=== PATIENT | female | born 1985 | race Caucasian/White ===

== ENCOUNTER 2017-04-17 19:43 | Emergency (ER) | payer OTHER ==
[2017-04-17 19:50] VITALS: BP 133/87; PULSE 93; TEMP 99.1; BMI 27.1
--- NOTE | 2017-04-17 19:50 | PDOC ---
Rapid Medical Evaluation Time Seen by Provider: 04/17/17 19:48 Medical Evaluation: 04/17/17 19:48 I have performed a brief in-person evaluation of the patient. The patient presents with chief complaint of: irritation of both eyes after sleeping with contact lens in both eyes. States able to remove contact lens but presents with irritation of both eyes and photophobia Pertinent physical exam findings are: NAD HEENT: + ejection of sclera + swelling of upper and lower lids + tearing unlabored breathing Heart s1s2 I have ordered the following: urine The patient will proceed to the ED for further evaluation.
[2017-04-17] MEDS ORDERED: TETRACAINE 0.5% HCL 0.6ML DROPPER.BOTTLE OU ONE (20:14)
[2017-04-17] MEDS ORDERED: ERYTHROMYCIN 0.5% OPHTHALMIC OINTMENT 3.5 GM TUBE OU ONE (20:14)
--- NOTE | 2017-04-17 20:14 | PDOC ---
History of Present Illness - General Chief Complaint: Eye Problem Stated Complaint: Eye Problem Time Seen by Provider: 04/17/17 19:48 History Source: Patient - History of Present Illness Initial Comments: 04/17/17 20:13 Best Contact:[phone] Pmhx:N/a Pshx:N/A Allergies:NKDA 31-year-old female presents to the emergency department complaining of bilateral blurry vision and pain 2 days. Patient states she forgot to remove her soft contact lenses 2 evenings ago and wore it throughout the evening into the morning. When she awoke, she felt a burning sensation to both eyes. Patient denies any other symptoms. Unknown last tetanus. Past History - Past Medical History Allergies/Adverse Reactions: Allergies Allergy/AdvReac Type Severity Reaction Status Date / Time No Known Allergies Allergy Verified 04/17/17 19:48 Home Medications: Ambulatory Orders Erythromycin 0.5% Eye Ointment [Erythromycin 0.5% Eye Ointment -] 1 applic OU BID #2 tube 04/17/17 COPD: No - Suicide/Smoking/Psychosocial Hx Smoking History: Current every day smoker Number of Cigarettes Smoked Daily: 2 Information on smoking cessation initiated: No Review of Systems - Review of Systems Able to Perform ROS?: Yes Comments:: 04/17/17 20:37 CONSTITUTIONAL: Absent: fever, chills, diaphoresis, generalized weakness, malaise, loss of appetite HEENT: Absent: rhinorrhea, nasal congestion, throat pain, throat swelling, difficulty swallowing, mouth swelling, ear pain, eye pain, visual Changes +++B/L eye irritation/pain/blurry vision Visual acuity Right 20/20 Left 20/20 -2 B/L 20/10 Tetracine 2 gtts per eye Fluorescein stain Is the patient limited German proficient: No *Physical Exam - Vital Signs Last Vital Signs Temp Pulse Resp BP Pulse Ox 99.1 F 93 H 18 133/87 100 04/17/17 19:48 04/17/17 19:48 04/17/17 19:48 04/17/17 19:48 04/17/17 19:48 - Physical Exam Comments: 04/17/17 20:38 GENERAL: Well developed, well nourished. Awake and alert. No acute distress. HEENT: Normocephalic, atraumatic. PERRLA, EOMI. No conjunctival pallor. Sclera are non- icteric. Moist mucous membranes. Oropharynx is clear. ++ Dye uptake to bilateral corneas Bilateral sclerae/injected Upper eyelid slightly swollen bilaterally Procedure: Tetracaine 2 drops for eye Fluorescein stain Cornea examined under blue light shows bilateral 70% dye uptake to both eyes Both upper and lower eyelids everted: No foreign body Erythromycin ophthalmic ointment applied *DC/Admit/Observation/Transfer Diagnosis at time of Disposition: Corneal abrasion due to contact lens Qualifiers: Laterality: bilateral Qualified Code(s): H18.823 - Corneal disorder due to contact lens, bilateral - Discharge Dispostion Disposition: HOME Condition at time of disposition: Stable Admit: No - Prescriptions Prescriptions: Erythromycin 0.5% Eye Ointment [Erythromycin 0.5% Eye Ointment -] 1 applic OU BID #2 tube - Referrals Referrals: ON STAFF,NOT [Primary Care Provider] - Liilana Roger MD [Staff Physician] - - Patient Instructions Printed Discharge Instructions: DI for Corneal Abrasion Additional Instructions: Avoid wearing contact lenses for the next 2 weeks or until cleared by the yeast cake cutter It is important you've follow with yeast cake cutter within 48 hours We've updated her tetanus today while in the emergency department Apply the erythromycin ophthalmic ointment as prescribed Return back to the emergency department for severe/persistent or worsening symptoms - Post Discharge Activity
[2017-04-17] MEDS ORDERED: ERYTHROMYCIN 0.5% OPHTHALMIC OINTMENT 3.5 GM TUBE ONE (20:17)
[2017-04-17] MEDS ORDERED: TETRACAINE 0.5% OPHTH SOLN 2 ML BOTTLE ONE (20:17)
[2017-04-17] MEDS ORDERED: TETANUS AND DIPHTHERIA TOXOID 0.5 ML DISP.SYRIN IM ONE (20:27)
== END 2017-04-17 20:50 | disposition home or self-care (01) ==
LOC: JERFT 19:43
PROC: 3E0234Z Introduction of Serum, Toxoid and Vaccine into Muscle, Percutaneous Approach (ICD-10-PCS; principal; 2017-04-17)
DX: H18.823 Corneal disorder due to contact lens, bilateral (principal)
CPT/HCPCS: 84703; 90471; 99281-25

== ENCOUNTER 2018-10-19 19:37 | Emergency (ER) | payer OTHER ==
[2018-10-19 19:43] VITALS: TEMP 98.6; BMI 23.5
--- NOTE | 2018-10-19 20:00 | PDOC ---
Attending Attestation - Resident Resident Name: Shahana Velez - HPI HPI: 10/19/18 22:25 Pt presents to the ED complaining of shortness of breath that has been persistent for weeks but became acutely worse three days ago. History of hyperthyroidism with non compliance with medications. Restarted her PTU three days ago. - Physicial Exam PE: 10/19/18 22:35 agree with resident exam. Patient is alert and oriented and in no acute distress. Lungs are clear with good air entry b/l, speaking in complete sentences. Heart regular rate and rhythm. Abdomen soft, non tender non distended. - Medical Decision Making 10/19/18 22:39 Pt presents to the ED complaining of palpitations and shortness of breath. EKG shows normal sinus rhythm. PERC negative. Labs show no evidence of anemia. Will discharge home with instructions to return to the ED for worsening symptoms.
--- NOTE | 2018-10-19 20:02 | PDOC ---
History of Present Illness - General Chief Complaint: Shortness of Breath Stated Complaint: PALPITATIONS/SHORTNESS OF BREATH Time Seen by Provider: 10/19/18 19:58 - History of Present Illness Initial Comments: 10/19/18 20:55 HPI: 33 y/o F with hx of hyperthyroid presenting with 3 days of palpitations and SOB after restarting her PTU 3 days ago after self discontinuing them for the past 2 months. She states she got sick of taking her pills and they tasted bad. The palpitations are constant through the day and night, however, they seem to be improved today. She denies any chest pain. She also reports SOB which worsened today which prompted arrival to the ED; its present at rest and worse with exertion. She also reports intermittent LH, blurry vision, diaphoresis. She denies fever, chills, n/v, diarrhea, chest pain, DAS, brittle hair/nails. She reports Dr Alexander Corbin is not aware she stopped her PTU and hasnt had thyroid function tests in ~7months. PMHx: as noted above ROS: as noted SHx: 2cigs/day; occasional alcohol use however admits heavy wine use in the past week; no rec drugs Allergies: NKDA ROS: GENERAL/CONSTITUTIONAL: No fever or chills. No weakness. HEAD, EYES, EARS, NOSE AND THROAT: No change in vision. No ear pain or discharge. No sore throat. CARDIOVASCULAR: No chest pain RESPIRATORY: No cough, wheezing, or hemoptysis. GASTROINTESTINAL: No nausea, vomiting, diarrhea or constipation. GENITOURINARY: No dysuria, frequency, or change in urination. MUSCULOSKELETAL: +joint pain. No neck or back pain. SKIN: No rash NEUROLOGIC: No headache, vertigo, loss of consciousness, or change in strength/ sensation. ENDOCRINE: No increased thirst. No abnormal weight change HEMATOLOGIC/LYMPHATIC: No anemia, easy bleeding, or history of blood clots. ALLERGIC/IMMUNOLOGIC: No hives or skin allergy. PE: GENERAL: Awake, alert, and fully oriented, no acute distress HEAD: No signs of trauma, normocephalic, atraumatic EYES: EOMI, sclera anicteric, conjunctiva clear, BL exophthalmos ENT: Auricles normal inspection, hearing grossly normal, nares patent, oropharynx clear without exudates. Moist mucosa NECK: Normal ROM, no lymphadenopathy, no goiter present or large thyroid palpated, no nodes appreciated LUNGS: No increased work of breathing, symmetrical chest rise, clear to auscultation bilaterally, no wheezes, crackles or rhonchi HEART: Regular rate and rhythm, normal S1 and S2, no murmurs, peripheral pulses 2+ and equal bilaterally. ABDOMEN: Soft, nondistended, nontender, normoactive bowel sounds. No guarding, no rebound. No masses EXTREMITIES: Normal inspection, Normal range of motion, no edema. No clubbing or cyanosis or ecchymosis NEUROLOGICAL: Cranial nerves II through XII grossly intact. Normal speech, normal gait, no focal sensorimotor deficits SKIN: Warm, Dry, normal turgor, no rashes or lesions noted Past History - Past Medical History Allergies/Adverse Reactions: Allergies Allergy/AdvReac Type Severity Reaction Status Date / Time No Known Allergies Allergy Verified 10/19/18 19:41 Home Medications: Ambulatory Orders Propylthiouracil 50 mg PO ASDIR 10/19/18 COPD: No Thyroid Disease: Yes - Suicide/Smoking/Psychosocial Hx Smoking History: Current some day smoker Number of Cigarettes Smoked Daily: 2 Information on smoking cessation initiated: No Hx Alcohol Use: Yes (occasional) *Physical Exam - Vital Signs Last Vital Signs Temp Pulse Resp BP Pulse Ox 98.6 F 88 18 130/95 99 10/19/18 19:41 10/19/18 19:41 10/19/18 19:41 10/19/18 19:41 10/19/18 19:41 ED Treatment Course - LABORATORY CBC & Chemistry Diagram: 10/19/18 21:11 10/19/18 21:11 Medical Decision Making - Medical Decision Making 10/19/18 21:42 33 y/o F with hx of hyperthyroid presenting with 3 days of palpitations and SOB after restarting her PTU 3 days ago after self discontinuing them for the past 2 months. Vitals wnl. PE only significant for BL exophthalmos. Patient afebrile , hemodynamically stable, and nonaltered making thyroid storm highly unlikely. ACS unlikely given negative history and age. PERC negative making PE unlikely. -cbc, cmp, UA, upreg -ekg 10/19/18 21:46 EKG: NSR with absent RICKY, STD. Nml interval duration and axis. Nml R wave progression. Absent Q waves. 10/19/18 22:07 labs unremarkable 10/19/18 22:36 discussed with patient results and explained importance of following up with PCP for better control of hyperthyroidism; she understands instructions and is comfortable with DC home 10/19/18 23:24 Patient was informed to get dressed meanwhile DC papers were being printed, however, patient was nowhere to be found *DC/Admit/Observation/Transfer Diagnosis at time of Disposition: Palpitations, Shortness of breath - Discharge Dispostion Disposition: ELOPED Condition at time of disposition: Improved Decision to Admit order: No - Referrals Referrals: Alexander Corbin [Primary Care Provider] - - Patient Instructions Printed Discharge Instructions: DI for Shortness of Breath, DI for Palpitations Additional Instructions: Additional Instructions: Please return to the emergency department with any new or worsening symptoms or concerns including severe shortness of breath, excessive vomiting, fever, fainting. Please follow up with your primary care physician within 24-48 hours for further evaluation and management of hyperthyroidism - Post Discharge Activity
[2018-10-19 20:20] VITALS: BP 127/95; PULSE 85
[2018-10-19 21:31] LABS: BASO % 0.6 % (0-2.0); EOS % 2.1 % (0-4.5); HEMATOCRIT 40.2 % (32.4-45.2); HEMOGLOBIN 13.3 GM/dL (10.7-15.3); LYMPH % 21.3 % (8-40); MCHC 33.1 g/dl (32.0-36.0); MEAN CELL VOLUME 93.8 fl (80-96); MEAN PLT VOLUME 7.9 fl (7.5-11.1); MONO % 13.1 % (3.8-10.2); NEUT % 62.9 % (42.8-82.8); PLATELET COUNT 226 K/MM3 (134-434); RBC 4.28 M/mm3 (3.60-5.2); RDW 13.5 % (11.6-15.6); WHITE BLOOD COUNT 5.5 K/mm3 (4.0-10.0)
[2018-10-19 21:55] LABS: BILIRUBIN,TOTAL 0.5 mg/dL (0.2-1); BLOOD UREA NITROGEN 11.5 mg/dL (7-18); CALCIUM 9.1 mg/dL (8.5-10.1); CREATININE 0.6 mg/dL (0.55-1.3); POTASSIUM 3.6 mmol/L (3.5-5.1); TOT PROT 7.6 g/dl (6.4-8.2)
[2018-10-19 22:18] LABS: EPI CELLS 1.4 /HPF (0-5/HPF); HYALINE CASTS 0 /lpf (0-8); PH,URINE 7.5 (5.0-8.0); URINE APPEARANCE CLEAR; URINE BACTERIA 42.8 /hpf (NEGATIVE); URINE BILIRUBIN NEGATIVE (NEGATIVE); URINE COLOR YELLOW; URINE GLUCOSE (UA) NEGATIVE (NEGATIVE); URINE KETONE NEGATIVE (NEGATIVE); URINE LEUK ESTERASE TRACE (NEGATIVE); URINE NITRITE NEGATIVE (NEGATIVE); URINE PROTEIN NEGATIVE (NEGATIVE); URINE RBC 2 /hpf (0-4); URINE UROBILINOGEN 0.2 mg/dL (0.2-1.0); URINE WBC 1 /hpf (0-5)
--- NOTE | 2018-10-20 15:03 | EKG ---
Test Reason : Blood Pressure : / mmHG Vent. Rate : 075 BPM Atrial Rate : 075 BPM P-R Int : 130 ms QRS Dur : 088 ms QT Int : 402 ms P-R-T Axes : 042 014 025 degrees QTc Int : 448 ms NORMAL SINUS RHYTHM NORMAL ECG NO PREVIOUS ECGS AVAILABLE Confirmed by MD ABI, LIANA ([id number]) on 10/20/2018 3:03:23 PM Referred By: Confirmed By:LIANA ALEX MD
== END 2018-10-19 23:09 | disposition home or self-care (01) ==
LOC: JER 19:37
DX: R00.2 Palpitations (principal); R06.02 Shortness of breath; E05.90 Thyrotoxicosis, unspecified without thyrotoxic crisis or storm; H05.20 Unspecified exophthalmos
CPT/HCPCS: 36415; 80053; 81003; 84703; 85025; 93005; 93010; 99283-25

== ENCOUNTER 2019-08-05 14:35 | Emergency (ER) | payer OTHER ==
[2019-08-05 14:40] VITALS: BP 145/99; PULSE 93; TEMP 98.7; BMI 23.5
--- NOTE | 2019-08-05 14:40 | PDOC ---
Rapid Medical Evaluation Time Seen by Provider: 08/05/19 14:36 Medical Evaluation: Allergies Allergy/AdvReac Type Severity Reaction Status Date / Time No Known Allergies Allergy Verified 08/05/19 14:36 08/05/19 14:39 CC: itchy bump to torso x 7 days with no improvement with topicals x 3 days. no other complaints exam: noted erythematous papules to chest and back Plan: none Discharge Disposition - Diagnosis Rash - Referrals - Patient Instructions - Post Discharge Activity
[2019-08-05] MEDS ORDERED: TRIAMCINOLONE ACET 40MG/1ML VIAL IM ONE (15:13)
--- NOTE | 2019-08-05 15:27 | PDOC ---
History of Present Illness - General Chief Complaint: Rash Stated Complaint: RASH Time Seen by Provider: 08/05/19 14:36 History Source: Patient Exam Limitations: No Limitations - History of Present Illness Initial Comments: 08/05/19 15:14 HISTORY OF PRESENT ILLNESS: 33 y/o female with c/o diffuse rash to anterior and posterior torso for about 10 days.Patient states, " I think there's an infestation in my building of a mite." Reports itching.No change in foods, medications, soaps, and cosmetic cleansers. UTD vaccines. No recent travel or sick contacts. PAST MEDICAL HISTORY: Denies past medical history SURGICAL HISTORY: Denies ALLERGIES: No known drug allergies REVIEW OF SYSTEMS General/Constitutional: Denies fever or chills. Denies weakness, weight change. HEENT: Denies change in vision. Denies ear pain or discharge. Denies sore throat. Cardiovascular: Denies chest pain or shortness of breath. Respiratory: Denies cough, wheezing, or hemoptysis. Gastrointestinal: Denies nausea, vomiting, diarrhea or constipation. Denies rectal bleeding. Genitourinary: Denies dysuria, frequency, or change in urination. Musculoskeletal: Denies joint or muscle swelling or pain. Denies neck or back pain. Skin and breasts: rash to anterior and posterior torso for 10 days. Neurologic: Denies headache, vertigo, loss of consciousness, or loss of sensation. Psychiatric: Denies depression or anxiety. Endocrine: Denies increased thirst. Denies abnormal weight change. Hematologic/Lymphatic: Denies anemia, easy bleeding, or history of blood clots. Allergic/Immunologic: Denies hives or skin allergy. Denies latex allergy. PHYSICAL EXAM General Appearance: Well-appearing, appropriately dressed. No apparent distress, no intoxication. Integumentary: Puritic red papular diffuse rash noted to upper chest and posterior torso, blanchable erythema. Appearance similar to insect bites. Self inflicted scratch banks present. Otherwise appropriate color, dry, warm. No cyanosis. Past History - Medical History Allergies/Adverse Reactions: Allergies Allergy/AdvReac Type Severity Reaction Status Date / Time No Known Allergies Allergy Verified 08/05/19 14:36 Home Medications: Ambulatory Orders Propylthiouracil 50 mg PO ASDIR 10/19/18 Triamcinolone 0.5% Cream [Aristocort 0.5% Cream -] 1 applic TP BID #1 tube 08/05/19 COPD: No Thyroid Disease: Yes - Immunization History Immunization Up to Date: Yes - Psycho-Social/Smoking History Smoking History: Never smoked Number of Cigarettes Smoked Daily: 2 - Substance Abuse Hx (Audit-C & DAST Scrn) How often the patient has a drink containing alcohol: 2-3 times / week Number of drinks the patient has on a typical day: 7 to 9 How often the patient has six or more drinks on one occasion: Weekly Score: In Men: 4 or > Positive; In Women: 3 or > Positive: 9 Screen Result (Pos requires Nsg. Audit-10AR): Positive In the last yr the pt used illegal drug/Rx for NonMed reason: No Score: Yes response is considered Positive: 0 Screen Result (Positive result requires Nsg. DAST-10): Negative *Physical Exam - Vital Signs Last Vital Signs Temp Pulse Resp BP Pulse Ox 98.7 F 93 H 18 145/99 100 08/05/19 14:38 08/05/19 14:38 08/05/19 14:38 08/05/19 14:38 08/05/19 14:38 Medical Decision Making - Medical Decision Making 08/05/19 15:27 A/P: 33 y/o femaile with c/o itchy rash to chest and back x 10 days Diffuse red papular rash to upper chests and posterior torso, blanchable, no red flags.Appearance similar to insect bites. Kenalog 40mg IM now Discharge home with Dermatology follow up and Triamcinolone cream. Discharge - Discharge Information Problems reviewed: Yes Clinical Impression/Diagnosis: Insect bite Qualifiers: Encounter type: initial encounter Site of insect bite: thoracic wall Condition: Fair Disposition: HOME - Admission No - Additional Discharge Information Prescriptions: Triamcinolone 0.5% Cream [Aristocort 0.5% Cream -] 1 applic TP BID #1 tube - Follow up/Referral Referrals: Mercy Lerma MD [Staff Physician] - - Patient Discharge Instructions Additional Instructions: Rest, keep cool and dry- avoid strenuous activity or hot /humid environments Less hot showers, no abrasive soaps May use heavy creams like Eucerin or Cetaphil to keep skin moist May apply Aveeno, calamine lotion May use Benadryl at night for antihistamine, Zyrtec/ Kathi or Claritin for daytime antihistamine use to help with itching May use triamcinolone cream on all areas except face Try to identify cause for rash and avoid exposures Followup with PMD in one week if no resolution Make appointment with shipping point inspector for evaluation when possible - Post Discharge Activity
== END 2019-08-05 15:45 | disposition home or self-care (01) ==
LOC: JERFT 14:35
PROC: 3E023GC Introduction of Other Therapeutic Substance into Muscle, Percutaneous Approach (ICD-10-PCS; principal; 2019-08-05)
DX: S20.369A Insect bite (nonvenomous) of unspecified front wall of thorax, initial encounter (principal); W57.XXXA Bitten or stung by nonvenomous insect and other nonvenomous arthropods, initial encounter
CPT/HCPCS: 96372; 99284-25

== ENCOUNTER 2023-05-16 04:12 | Day surgery (SDC) | payer OTHER ==
[2023-05-15 17:20] VITALS: BMI 22.7
[2023-05-16] MEDS ORDERED: MIDAZOLAM HCL 2 MG/2 ML SINGLE DOSE VIAL ONE (10:23)
[2023-05-16] MEDS ORDERED: FENTANYL CITRATE/PF 50 MCG/ML VIAL ONE ×3 (10:23→11:15)
[2023-05-16] MEDS ORDERED: PROPOFOL 20 ML ONE (10:27)
[2023-05-16] MEDS ORDERED: DEXAMETHASONE SOD PHOSPHATE 4 MG/1 ML VIAL ONE (10:49)
[2023-05-16] MEDS ORDERED: ONDANSETRON 4 MG/2 ML VIAL ONE (10:49)
[2023-05-16] MEDS ORDERED: KETOROLAC TROMETHAMINE 30 MG/1 ML VIAL ONE (10:49)
[2023-05-16] MEDS ORDERED: ONDANSETRON 4 MG/2 ML VIAL IVPUSH PRN ×2 (11:10→11:12)
[2023-05-16] MEDS ORDERED: oxyCODONE HCL 5 MG TABLET PO PRN (11:10)
[2023-05-16] MEDS ORDERED: IBUPROFEN 800 MG/8 ML IJ IVPB PRN (11:10)
[2023-05-16] MEDS ORDERED: IBUPROFEN 600 MG TABLET (FP) PO PRN (11:10)
[2023-05-16] MEDS ORDERED: LACTATED RINGERS SOLUTION 1,000 ML IV SCH (11:15)
[2023-05-16] MEDS ORDERED: ELECTROLYTE-148 SOLN 1,000 ML IV SCH (11:15)
[2023-05-16] MEDS: ACETAMINOPHEN 1000 MG/100 ML BAG IVPB ONE (11:20)
[2023-05-16 12:01] VITALS: RESP 18; TEMP 97.6
[2023-05-16 13:18] VITALS: BP 138/94; PULSE 68
== END 2023-05-16 13:19 | disposition home or self-care (01) ==
LOC: JASU-SURG 04:12
PROVIDERS: ATTEND Obstetrics & Gynecology
PROC: 0UB98ZZ Excision of Uterus, Via Natural or Artificial Opening Endoscopic (ICD-10-PCS; principal; 2023-05-16 09:30)
DX: N93.9 Abnormal uterine and vaginal bleeding, unspecified (principal); D25.0 Submucous leiomyoma of uterus; N84.0 Polyp of corpus uteri
CPT/HCPCS: 81025; 88305-TC; 94760; J0131